=== PATIENT | female | born 1990 | race Asian ===

== ENCOUNTER 2018-08-12 09:51 | Outpatient (CLI) | payer BC ==
--- NOTE | 2018-08-12 10:21 | ULT ---
Pelvic ultrasound: 08/12/2018 COMPARISON: None HISTORY: Menstrual abnormality, history of ovarian cyst. TECHNIQUE: Multiplanar grayscale sonographic imaging of the pelvis obtained with transabdominal imagi ng. Ovaries are assessed with color flow and spectral analysis FINDINGS: Uterus measures 6.6 x 3.3 x 4.2 cm. The endometrial stripe is normal in thickness, measurin g 4 mm. No free fluid noted. Ovaries demonstrate blood flow bilaterally, measuring 2.6 x 2.2 x 1.7 cm on the right and 2.4 x 1.4 x 1.8 cm on the left. 1.2 x 1.1 cm dominant follicle noted within right ovary. No ovarian or adnexal mass seen on the left. IMPRESSION: Grossly unremarkable pelvic ultrasound as above.
== END 2018-08-12 09:52 | disposition home or self-care (01) ==
LOC: BICULT 09:51
PROVIDERS: ATTEND Family Medicine
DX: N92.6 Irregular menstruation, unspecified (principal); N83.209 Unspecified ovarian cyst, unspecified side
CPT/HCPCS: 76856

== ENCOUNTER 2019-03-10 12:50 | Outpatient (CLI) | payer BC ==
--- NOTE | 2019-03-10 14:04 | RAD ---
Hysterosalpingogram HISTORY: Infertility. FINDINGS: After explaining the procedure and answering all questions, the uterine cervix was exposed and prepped. HSG catheter was carefully placed into the endometrial cavity. Balloon inflated for retention. Approximately 8 cc of iodinated contrast was carefully instilled into the endometrial cavity under fl uoroscopic control. Normal capacity and contour. There is immediate opacification of each fallopian tube with free spill of contrast bilaterally. Excess contrast was aspirated and catheter removed. Patient tolerated the procedure well and was dism issed in good condition. Fluoroscopy time 0.5 minutes. IMPRESSION: Patent fallopian tubes. Normal exam.
== END 2019-03-10 12:51 | disposition home or self-care (01) ==
LOC: RAD 12:50
PROVIDERS: ATTEND Obstetrics & Gynecology
DX: Z31.41 Encounter for fertility testing (principal)
CPT/HCPCS: 58340; 74740